=== PATIENT | female | born 1995 ===

== ENCOUNTER 2019-10-14 14:47 | Emergency (ER) | payer SELFPAY ==
[2019-10-14 14:56] VITALS: BP 149/70
--- NOTE | 2019-10-14 15:36 | ER Document Report ---
HPI - HPI Patient complains to provider of: Cough congestion sore throat Time Seen by Provider: 10/14/19 15:27 Onset: This morning Onset/Duration: Sudden Quality of pain: Achy Context: 24-year-old female presents emergency department with complaints of cough congestion sore throat some shortness of breath that started this morning. 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 Known exposure to coronavirus. No recent overseas trip. 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 Denies fever vomiting diarrhea. Associated Symptoms: Body/muscle aches, Nonproductive cough, Shortness of breath, Sore throat Exacerbated by: Denies Relieved by: Denies Similar symptoms previously: No Recently seen / treated by doctor: No Past Medical History - General Information source: Patient - Social History Smoking Status: Unknown if Ever Smoked Cigarette use (# per day): No Frequency of alcohol use: None Drug Abuse: None Lives with: Friend Family History: None Patient has suicidal ideation: No Patient has homicidal ideation: No Malignancy Medical History: Reports: Other - Thyroid cancer Musculoskeletal Medical History: Reports Hx Fibromyalgia Past Surgical History: Reports: Hx Orthopedic Surgery, Hx Thyroid Surgery Vertical Provider Document - CONSTITUTIONAL Agree With Documented VS: Yes Exam Limitations: No Limitations General Appearance: WD/WN, No Apparent Distress - Nontoxic looking - HEENT HEENT: Atraumatic, Normal ENT Exam, Normocephalic. negative: Conjuctival Injec tion, Pharyngeal Erythema, Tympanic Membrane Red, Tympanic Membrane Bulging - NECK Neck: Normal Inspection, Supple. negative: Lymphadenopathy-Left, Lymphadenopa thy-Right - RESPIRATORY Respiratory: Breath Sounds Normal, No Respiratory Distress. negative: Rhonchi, Wheezing - CARDIOVASCULAR Cardiovascular: Regular Rate, Regular Rhythm - GI/ABDOMEN Gastrointestinal: Abdomen Soft - MUSCULOSKELETAL/EXTREMETIES Musculoskeletal/Extremeties: MAEW, FROM - NEURO Level of Consciousness: Awake, Alert, Appropriate Motor/Sensory: No Motor Deficit - DERM Integumentary: Warm, Dry, No Rash - No visual rash Course - Re-evaluation Re-evalutation: 10/14/19 15:33 24-year-old female presents with complaints of shortness of breath cough congestion and sore throat that started today. 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 She denies exposure to anyone with a coronavirus. Denies recent overseas trip. Denies fever vomiting diarrhea. 10/14/19 18:08 Patient decided to not obtain labs or chest x-ray. Patient eloped. - Vital Signs Vital signs: Temp Pulse Resp BP Pulse Ox 98.3 F 93 16 149/70 H 99 10/14/19 14:55 10/14/19 14:55 10/14/19 14:55 10/14/19 14:55 10/14/19 14:55 Discharge - Discharge Clinical Impression: Cough, Sore throat Condition: Stable Disposition: ELOPED Instructions: Use of Lban-Mev-Tzponrx Ibuprofen ([facility]), Sore Throat ([facility]) Additional Instructions: *You have been evaluated for a cough, congestion, sore throat *Your strep test was negative. A throat culture is pending. You may be contacted in 3 to 4 days should she need antibiotics *Take medication as prescribed *Gargle with warm salt water and suck on throat lozenges for comfort *Change toothbrush after two days of antibiotics *Do not let anyone drink/eat after you *Good hand washing, increase your fluids *Follow-up with a primary care provider in 1 week for recheck *Return to ED for worsening condition change, needs, concerns, difficulty breathing
== END 2019-10-14 16:16 | disposition left against medical advice (07) ==
LOC: ER 14:47
DX: R05 Cough (principal); J02.9 Acute pharyngitis, unspecified; R09.81 Nasal congestion; R06.02 Shortness of breath; M79.10 Myalgia, unspecified site
CPT/HCPCS: 99281